=== PATIENT | male | born 1985 ===

== ENCOUNTER 2018-07-03 13:34 | Emergency (ER) | payer SELFPAY ==
[2018-07-03 15:12] VITALS: BP 167/107
--- NOTE | 2018-07-03 17:51 | Emergency Department Report ---
ED General Adult HPI - General Chief complaint: Dyspnea/Respdistress Stated complaint: EYE INFECTION Time Seen by Provider: 07/03/18 17:27 Source: patient Mode of arrival: Ambulatory Limitations: No Limitations - History of Present Illness Initial comments: [place] and is here complaining of some mild shortness of breath is present for 2-3 months. Patient states that he also has some very mild chest discomfort on occasion. Patient without his blood pressure medicines for approximately 2 weeks since he's been in town. Patient states the chest discomfort is nonexertional. Patient denies any cough. Patient does state that he is a smoker and sometimes has some chest congestion they believe that chest pain is coming from this. Patient also occasionally has some right eye swelling and crusting in the last 2 days his hands some exudate from the right eye. Patient denies any fevers chills nausea vomiting diarrhea at this time. - Related Data Previous Rx's Medication Instructions Recorded Last Taken Type Amlodipine Besylate/Benazepril 1 each PO DAILY #30 capsule 07/03/18 Unknown Rx [Lotrel 5-10 mg Capsule] Atenolol/Chlorthalidone [Tenoretic 1 tab PO QDAY #30 tab 07/03/18 Unknown Rx 50-25] Neomy/Polymyx B/Hc Opth Susp 1 drop OD Q6HR #1 bottle 07/03/18 Unknown Rx [Cortisporin (OPTH) Susp] Allergies Allergy/AdvReac Type Severity Reaction Status Date / Time No Known Allergies Allergy Verified 07/03/18 15:09 ED Review of Systems ROS: Stated complaint: EYE INFECTION Other details as noted in HPI Comment: All other systems reviewed and negative ED Past Medical Hx - Past Medical History Previous Medical History?: Yes Hx Hypertension: Yes - Surgical History Past Surgical History?: Yes Additional Surgical History: Left ACL repair - Social History Smoking Status: Current Every Day Smoker Substance Use Type: Alcohol - Medications Home Medications: Home Medications Medication Instructions Recorded Confirmed Last Taken Type Amlodipine Besylate/Benazepril 1 each PO DAILY #30 capsule 07/03/18 Unknown Rx [Lotrel 5-10 mg Capsule] Atenolol/Chlorthalidone [Tenoretic 1 tab PO QDAY #30 tab 07/03/18 Unknown Rx 50-25] Neomy/Polymyx B/Hc Opth Susp 1 drop OD Q6HR #1 bottle 07/03/18 Unknown Rx [Cortisporin (OPTH) Susp] ED Physical Exam - General Limitations: No Limitations General appearance: alert, in no apparent distress - Head Head exam: Present: atraumatic, normocephalic - Eye Eye exam: Present: normal appearance, other (patient has some right eye lid swelling. Some mild injection to the sclera) - ENT ENT exam: Present: mucous membranes moist - Neck Neck exam: Present: normal inspection - Respiratory Respiratory exam: Present: normal lung sounds bilaterally. Absent: respiratory distress, wheezes, rales, rhonchi - Cardiovascular Cardiovascular Exam: Present: regular rate, normal rhythm, normal heart sounds. Absent: systolic murmur, diastolic murmur, rubs, gallop - GI/Abdominal GI/Abdominal exam: Present: soft, normal bowel sounds. Absent: distended, tenderness, guarding - Rectal Rectal exam: Present: deferred - Extremities Exam Extremities exam: Present: normal inspection - Back Exam Back exam: Present: normal inspection - Neurological Exam Neurological exam: Present: alert, oriented X3 - Psychiatric Psychiatric exam: Present: normal affect, normal mood - Skin Skin exam: Present: warm, dry, intact, normal color. Absent: rash ED Course Vital Signs 07/03/18 15:09 Temperature 98.6 F Pulse Rate 96 H Respiratory 20 Rate Blood Pressure 167/107 O2 Sat by Pulse 97 Oximetry ED Medical Decision Making - EKG Data -: EKG Interpreted by Me EKG shows normal: sinus rhythm, axis, intervals, QRS complexes, ST-T waves Rate: normal - EKG Data Interpretation: other (patient does have a Q-wave in V2 but otherwise normal EKG timed interpretation is 1530) - Medical Decision Making Patient is not ill-appearing have any chest pain at this time well reduced talking. Patient blood pressure was elevated and he does know the doses of his meds. The patient essentially here for medication refill. Patient will be given a prescription for his massive be discharged home. Critical care attestation.: If time is entered above; I have spent that time in minutes in the direct care of this critically ill patient, excluding procedure time. ED Disposition Clinical Impression: Hypertensive urgency, Atypical chest pain Conjunctivitis Qualifiers: Conjunctivitis type: unspecified Laterality: right Qualified Code(s): H10.9 - Unspecified conjunctivitis Disposition: DC-01 TO HOME OR SELFCARE Is pt being admited?: No Does the pt Need Aspirin: No Condition: Stable Instructions: Chest Pain (ED), Hypertension (ED), Conjunctivitis (ED) Prescriptions: Amlodipine Besylate/Benazepril [Lotrel 5-10 mg Capsule] 1 each PO DAILY #30 capsule Atenolol/Chlorthalidone [Tenoretic 50-25] 1 tab PO QDAY #30 tab Neomy/Polymyx B/Hc Opth Susp [Cortisporin (OPTH) Susp] 1 drop OD Q6HR #1 bottle Referrals: PRIMARY CARE, [Primary Care Provider] - 3-5 Days Time of Disposition: 17:54
== END 2018-07-03 18:50 | disposition home or self-care (01) ==
LOC: ED 13:34
DX: I10 Essential (primary) hypertension (principal); R07.89 Other chest pain; H10.9 Unspecified conjunctivitis; F17.200 Nicotine dependence, unspecified, uncomplicated
CPT/HCPCS: 93005; 93010; 99282